=== PATIENT | female | born 1990 | race Caucasian/White ===

== ENCOUNTER 2016-03-13 22:34 | Emergency (ER) | payer MEDICAID, OTHER ==
[2016-03-13] MEDS ORDERED: ONDANSETRON INJ 4 MG/2 ML VIAL IV ONE (22:54)
[2016-03-13] MEDS ORDERED: DIPHENOXYLATE HCL/ATROPINE 2.5 MG TAB PO ONE (22:54)
--- NOTE | 2016-03-13 22:59 | ED.PDOC ---
History of Present Illness - General Chief Complaint: GI Problem Stated Complaint: diarrhea/abd pain/fever Time Seen by Provider: 03/13/16 22:40 Information Source: patient, RN notes reviewed, Vital Signs reviewed Exam Limitations: no limitations - History of Present Illness Initial Comments: Patient reports severe, copious diarrhea started about 1 pm today. She has had so much diarrhea she is having pain, burning and bleeding at her anus. + abd cramping and nausea prior to the episodes of diarrhea. + chills and subjective fever. No vomiting. Abdominal Pain Onset Location: LLQ Pain Radiation: no radiation Quality: moderate, cramping Timing/Duration: 7-24 hours Improving Factors: nothing Worsening Factors: nothing Associated Symptoms: diarrhea, fever/chills, fatigue, nausea/vomiting - No vomiting Review of Systems - Review of Systems Constitutional: States: chills, fever, malaise EENTM: States: no symptoms reported Respiratory: States: no symptoms reported Cardiology: States: no symptoms reported Gastrointestinal/Abdominal: States: see HPI, abdominal pain, diarrhea, nausea. Denies: constipation, vomiting Genitourinary: States: no symptoms reported Musculoskeletal: States: muscle pain Skin: States: no symptoms reported Neurological: States: no symptoms reported Endocrine: States: no symptoms reported Past Medical History (General) - Patient Medical History Hx Seizures: No Hx Stroke: No Hx Dementia: No Hx Asthma: No Hx of COPD: No Hx Cardiac Disorders: No Hx Congestive Heart Failure: No Hx Pacemaker: No Hx Hypertension: No Hx Thyroid Disease: No Hx Diabetes: No Hx Gastroesophageal Reflux: No Hx Renal Disease: No Hx Cancer: No Hx of HIV: No Hx Hepatitis C: No Hx MRSA: No - Vaccination History Hx Tetanus, Diphtheria Vaccination: No Hx Influenza Vaccination: No Hx Pneumococcal Vaccination: No - Social History Hx Tobacco Use: Yes Hx Chewing Tobacco Use: No Hx Alcohol Use: Yes - occasionally Hx Substance Use: Yes - clean for 5 years Hx Depression: No Hx Physical Abuse: No Hx Emotional Abuse: No Hx Suspected Abuse: No - Female History Hx Last Menstrual Period: 06/11/13 Patient : No Expected Date of Delivery:: 03/22/14 Family Medical History - Family History Mother Family History: No Known Physical Exam - Physical Exam General Appearance: Alert, No apparent distress, Well Developed, Well Groomed, Well Hydrated, Well Nourished Neck: non-tender, full range of motion, supple, normal inspection Respiratory: chest non-tender, lungs clear, normal breath sounds, no respiratory distress, no accessory muscle use Cardiovascular/Chest: regular rate, rhythm, no edema, no gallop, no JVD, no murmur Gastrointestinal/Abdominal: soft, no organomegaly, no pulsatile mass, abnormal bowel sounds - Hyperactive, tenderness - LLQ Extremity: normal range of motion, non-tender, normal inspection Neurologic: no motor/sensory deficits, alert, normal mood/affect, oriented x 3 Skin Exam: normal color, warm/dry Lymphatic: no adenopathy Progress - Progress Progress: 03/14/16 00:07 Patient has had no diarrhea since arriving at ER. Lomotil has not been given yet due to trying to get a urine sample for testing. Patient reports that the diarrhea seems to come after activity so she is now up walking around the ER to see if that will stimulate more diarrhea or if things are finally settling down. 03/14/16 00:23 Patient is still feeling ok. No diarrhea or urge to go. Tolerating PO intake without difficulty. Will hold off on the Lomotil and stool studies and d/c patient home. She is agreeable with plan. Departure - Departure Clinical Impression: Infectious diarrhea Time of Disposition: 00:26 Disposition: Discharge to Home or Self Care Departure Forms: ED Discharge - Pt. Copy, Patient Portal Self Enrollment Instructions: Diarrhea Diet: resume usual diet Referrals: Divine Becerra NP [Primary Care Provider] - 1-5 Days Prescriptions: Ondansetron [Zofran Odt] 4 mg PO Q6HRS PRN #15 tab PRN Reason: Nausea Home Medications: Ambulatory Orders Acetaminophen W/ Codeine [Tylenol W/ CODEINE #3] 1 - 2 ea PO Q8H PRN #16 Ibuprofen [Motrin Tab] 600 mg PO Q8H #20 tab 03/23/14 Acetaminophen W/ Codeine [Tylenol w/Codeine 300-30 mg] 1 tab PO Q6H PRN #20 tab 10/10/14 Ondansetron [Zofran Odt] 4 mg PO Q6HRS PRN #15 tab 03/14/16
[2016-03-13 23:03] VITALS: TEMP 101; O2SAT 97
[2016-03-13] MEDS ORDERED: SODIUM CHLORIDE 0.9% 1000ML 1,000 ML IVS ONE (23:09)
[2016-03-14 00:44] VITALS: BP 102/57
== END 2016-03-14 00:44 | disposition home or self-care (01) ==
LOC: ER 22:34
DX: A09 Infectious gastroenteritis and colitis, unspecified (principal); Z87.891 Personal history of nicotine dependence
CPT/HCPCS: 36415; 80053; 85025; J2405; J7030

== ENCOUNTER 2016-07-17 17:19 | Emergency (ER) | payer OTHER ==
[2016-07-17 17:28] VITALS: TEMP 98.8
--- NOTE | 2016-07-17 17:32 | ED.PDOC ---
History of Present Illness - General Chief Complaint: Back Pain or Injury Stated Complaint: low back pain Time Seen by Provider: 07/17/16 17:31 Source: patient, RN notes reviewed, Vital Signs reviewed Exam Limitations: no limitations - History of Present Illness Initial Comments: Andreina Vincent 26 y/o female stated that she started having on and off sharp low back pain which started 5 days ago aggravated after laying down and on standing more pain with bending over.Denies history of back injury,fever , weight loss,bowel or bladder dysfunctions.She stated the last 2 days pain went down to her right leg. Timing/Duration: other - 5 days ago Quality/Severity: sharpness Back Pain Location: lumbar spine Back Pain Radiation: lower legs Method of Injury/Prior Injury: other - no injury Improving Factors: immobilization Worsening Factors: movement Associated Symptoms: denies symptoms Allergies/Adverse Reactions: Allergies NO KNOWN ALLERGY Allergy (Verified 03/22/14 01:53) Home Medications: Ambulatory Orders Clindamycin HCl 150 mg PO TID #30 cap 07/17/16 Methocarbamol [Robaxin] 750 mg PO BID #20 tab 07/17/16 Naproxen [Naprosyn] 500 mg PO BID #20 tab 07/17/16 Nature-Throid DAILY 07/17/16 Review of Systems - Review of Systems Constitutional: States: no symptoms reported EENTM: States: no symptoms reported Respiratory: States: no symptoms reported Cardiology: States: no symptoms reported Gastrointestinal/Abdominal: States: no symptoms reported Genitourinary: States: no symptoms reported Musculoskeletal: States: see HPI Endocrine: States: no symptoms reported Hematologic/Lymphatic: States: no symptoms reported Past Medical History (General) - Patient Medical History Hx Seizures: No Hx Stroke: No Hx Dementia: No Hx Asthma: No Hx of COPD: No Hx Cardiac Disorders: No Hx Congestive Heart Failure: No Hx Pacemaker: No Hx Hypertension: No Hx Thyroid Disease: No Hx Diabetes: No Hx Gastroesophageal Reflux: No Hx Renal Disease: No Hx Cancer: No Hx of HIV: No Hx Hepatitis C: No Hx MRSA: No Surgical History: cholecystectomy, other - iud - Vaccination History Hx Tetanus, Diphtheria Vaccination: No Hx Influenza Vaccination: No Hx Pneumococcal Vaccination: No - Social History Hx Tobacco Use: No Hx Chewing Tobacco Use: No Hx Alcohol Use: Yes - occasionally Hx Substance Use: Yes - clean for 5 years Hx Depression: No Hx Physical Abuse: No Hx Emotional Abuse: No Hx Suspected Abuse: No - Activities of Daily Living Patient Lives Alone: No - family - Female History Patient is a Female of Child Bearing Age (10 -59 yrs old): Yes Hx Last Menstrual Period: 06/21/16 Patient : No Expected Date of Delivery:: 03/22/14 Family Medical History - Family History Mother Family History: No Known Hx Family Diabetes: Yes - mom Physical Exam - Physical Exam General Appearance: Alert, Comfortable, No apparent distress Eyes, Ears, Nose, Throat Exam: PERRL/EOMI, normal ENT inspection, TMs normal, pharynx normal, other - dental caries upper incisor right Neck Exam: non-tender, full range of motion, normal alignment, normal inspection Cardiovascular/Respiratory: regular rate, rhythm, no M/R/G, normal peripheral pulses, no JVD, normal breath sounds Peripheral Pulses: radial,right: 2+, radial,left: 2+, dorsalis pedis,right: 2+, dorsalis pedis,left: 2+ Gastrointestinal/Abdominal: normal bowel sounds, non tender, soft, no organomegaly Back Exam: normal inspection, no CVA tenderness, decreased range of motion - pain, muscle spasm, vertebral tenderness Neurologic: no motor/sensory deficits, alert, normal mood/affect, oriented x 3, other - negative straight leg raising test Skin Exam: normal color, warm/dry Progress - Results/Orders Results/Orders: Laboratory Results WBC 10.9 K/mm3 (4.8-10.8) H 07/17/16 18:00 RBC 4.64 M/mm3 (4.20-5.40) 07/17/16 18:00 Hgb 14.0 gm/dL (12.0-16.0) 07/17/16 18:00 Hct 40.3 % (36.0-47.0) 07/17/16 18:00 MCV 86.8 fl (81.0-99.0) 07/17/16 18:00 MCH 30.0 pg (27.0-31.0) 07/17/16 18:00 MCHC 34.6 g/dL (33.0-37.0) 07/17/16 18:00 RDW 13.2 % (11.5-14.5) 07/17/16 18:00 Plt Count 211 K/mm3 (130-400) 07/17/16 18:00 MPV 8.8 fl (7.40-10.4) 07/17/16 18:00 Absolute Neuts (auto) 7.60 K/uL (1.8-6.8) H 07/17/16 18:00 Absolute Lymphs (auto) 2.60 K/uL (1.0-3.4) 07/17/16 18:00 Absolute Monos (auto) 0.60 K/uL (0.2-0.8) 07/17/16 18:00 Absolute Eos (auto) 0.10 K/uL (0.0-0.4) 07/17/16 18:00 Absolute Basos (auto) 0.00 K/uL (0.0-0.1) 07/17/16 18:00 Neutrophils % 69.4 % (42.0-78.0) 07/17/16 18:00 Lymphocytes % 23.7 % (20.0-50.0) 07/17/16 18:00 Monocytes % 5.7 % (2.0-9.0) 07/17/16 18:00 Eosinophils % 0.8 % (1.0-5.0) L 07/17/16 18:00 Basophils % 0.4 % (0.0-2.0) 07/17/16 18:00 Urine Color Yellow (Yellow) 07/17/16 18:00 Urine Appearance Clear (Clear) 07/17/16 18:00 Urine pH 5.5 (4.5-7.8) 07/17/16 18:00 Ur Specific [place] <= 1.005 (1.005-1.030) 07/17/16 18:00 Urine Protein Negative mg/dL 07/17/16 18:00 Urine Glucose (UA) Negative mg/dL (Negative) 07/17/16 18:00 Urine Ketones Negative mg/dL (NEGATIVE) 07/17/16 18:00 Urine Blood Negative (Negative) 07/17/16 18:00 Urine Nitrite Negative 07/17/16 18:00 Urine Bilirubin Negative (NEGATIVE) 07/17/16 18:00 Urine Urobilinogen 0.2 mg/dL (0.2-1.0) 07/17/16 18:00 Ur Leukocyte Esterase Negative (Negative) 07/17/16 18:00 Urine RBC 0 /hpf 07/17/16 18:00 Urine WBC 0 /hpf 07/17/16 18:00 Ur Epithelial Cells 0-1 /hpf 07/17/16 18:00 Urine Bacteria 0 07/17/16 18:00 Vital Signs - 8 hr 07/17/16 17:25 Temperature 98.8 F Pulse Rate [ 93 H Right Brachial] Respiratory 16 Rate Blood Pressure 118/82 [Right Arm] O2 Sat by Pulse 96 Oximetry - EKG/XRAY/CT XRAY: L/S Spine-no acute abnormalities noted /radiologist Departure - Departure Clinical Impression: Tooth pulpitis Back pain Qualifiers: Back pain location: low back pain Back pain laterality: midline Sciatica presence: with sciatica presence unspecified Qualified Code(s): M54.5 - Low back pain Time of Disposition: 18:46 Disposition: Discharge to Home or Self Care Condition: Good Departure Forms: ED Discharge - Pt. Copy, Patient Portal Self Enrollment Instructions: DI for Low Back Pain Referrals: Katherine Camara NP [Primary Care Provider] - 1-2 Weeks Prescriptions: Clindamycin HCl 150 mg PO TID #30 cap Methocarbamol [Robaxin] 750 mg PO BID #20 tab Naproxen [Naprosyn] 500 mg PO BID #20 tab Home Medications: Ambulatory Orders Clindamycin HCl 150 mg PO TID #30 cap 07/17/16 Methocarbamol [Robaxin] 750 mg PO BID #20 tab 07/17/16 Naproxen [Naprosyn] 500 mg PO BID #20 tab 07/17/16 Nature-Throid DAILY 07/17/16 Additional Instructions: Follow up with primary md call for appointment 07/19/2016;Keep appointment with dentist next week
[2016-07-17] MEDS ORDERED: KETOROLAC TROMETHAMINE INJ 60 MG/2 ML VIAL IM ONE (17:45)
[2016-07-17] MEDS ORDERED: ORPHENADRINE CITRATE 30 MG/ML AMP IM ONE (17:45)
[2016-07-17] MEDS ORDERED: CLINDAMYCIN HCL CAP 150 MG CAP PO ONE (18:02)
--- NOTE | 2016-07-17 18:40 | RAD ---
EXAM DESCRIPTION: Lumbosacral w/Oblique,Flex,Ext CLINICAL HISTORY: pain COMPARISON: None. FINDINGS: AP, oblique and lateral view of the lumbar spine, and coned view of the lumbosacral junction were submitted. Flexion and extension views are also available. There is no inducible subluxation upon flexion and extension views. There are five true lumbar vertebral bodies. The pedicles are within normal limits. There is no acute fracture or spondylolisthesis. Surgical clips in the right upper quadrant compatible with prior cholecystectomy. IMPRESSION: No acute abnormalities. Electronically signed by: Gorge Rollins MD 07/17/2016 6:40 PM CDT
[2016-07-17 18:51] VITALS: BP 107/75; O2SAT 95
== END 2016-07-17 19:01 | disposition home or self-care (01) ==
LOC: ER 17:19
DX: M54.5 Low back pain (principal); K04.01 Reversible pulpitis
CPT/HCPCS: 36415; 72114; 81001; 85025; J1885; J2360

== ENCOUNTER → 2016-09-21 | Outpatient (CLI) | payer OTHER ==
--- NOTE | 2016-09-25 14:55 | RAD ---
EXAM DESCRIPTION: Ankle,Right 3 Views CLINICAL HISTORY: 26 years, Female, INJURY OF ANKLE COMPARISON: None. TECHNIQUE: AP/lateral/oblique of the right ankle FINDINGS: There is no bone, joint, or soft tissue abnormality. IMPRESSION: 1. Normal Electronically signed by: Santy Ratliff MD 09/25/2016 2:53 PM CDT
== END | disposition home or self-care (01) ==
LOC: RAD 16:36
PROVIDERS: ATTEND Nurse Practitioner Family
DX: S99.911A Unspecified injury of right ankle, initial encounter (principal)

== ENCOUNTER → 2016-10-12 | Outpatient (CLI) | payer OTHER | END | disposition home or self-care (01) | LOC: YCFC.O 09:08 | PROVIDERS: ATTEND Nurse Practitioner Family | DX: E06.3 Autoimmune thyroiditis (principal) ==

== ENCOUNTER 2017-02-28 14:40 | Emergency (ER) | payer OTHER ==
--- NOTE | 2017-02-28 14:54 | ED.PDOC ---
History of Present Illness - General Chief Complaint: General Stated Complaint: unabel to quench thirst,ASHTON d/t caffeine withdrawal Time Seen by Provider: 02/28/17 14:53 Source: patient Exam Limitations: no limitations - History of Present Illness Initial Comments: Andreina Vincent 26 y/o female stated she has cravings for sodium and mouth feels dry with loose stools for the last few months since gall bladder was taken out.No feve ,no nausea vomiting no abdominal pain,no fever Timing/Duration: other - several weeks Severity: moderate Improving Factors: nothing Worsening Factors: nothing Associated Symptoms: other - see hpi Allergies/Adverse Reactions: Allergies NO KNOWN ALLERGY Allergy (Verified 03/22/14 01:53) Home Medications: Ambulatory Orders Levothyroxine Sodium 02/28/17 Review of Systems - Review of Systems Constitutional: States: no symptoms reported EENTM: States: no symptoms reported Respiratory: States: no symptoms reported Cardiology: States: no symptoms reported Gastrointestinal/Abdominal: States: no symptoms reported Genitourinary: States: no symptoms reported Musculoskeletal: States: no symptoms reported Skin: States: no symptoms reported All other Systems: Reviewed and Negative, No Change from Baseline Past Medical History (General) - Patient Medical History Hx Seizures: No Hx Stroke: No Hx Dementia: No Hx Asthma: No Hx of COPD: No Hx Cardiac Disorders: No Hx Congestive Heart Failure: No Hx Pacemaker: No Hx Hypertension: No Hx Thyroid Disease: No Hx Diabetes: No Hx Gastroesophageal Reflux: No Hx Renal Disease: No Hx Cancer: No Hx of HIV: No Hx Hepatitis C: No Hx MRSA: No Surgical History: cholecystectomy, other - orif left ankle - Vaccination History Hx Tetanus, Diphtheria Vaccination: No Hx Influenza Vaccination: No Hx Pneumococcal Vaccination: No - Social History Hx Tobacco Use: No Hx Chewing Tobacco Use: No Hx Alcohol Use: Yes - occasionally Hx Substance Use: Yes - clean for 5 years Hx Depression: No Hx Physical Abuse: No Hx Emotional Abuse: No Hx Suspected Abuse: No - Female History Hx Last Menstrual Period: 06/21/16 - spotting;on iud/bcp Patient : No Expected Date of Delivery:: 03/22/14 Family Medical History - Family History Mother Family History: No Known Hx Family Diabetes: Yes - mom Physical Exam - Physical Exam General Appearance: Alert, Comfortable, No apparent distress Eye Exam: bilateral normal Ears, Nose, Throat: hearing grossly normal, normal ENT inspection, normal pharynx Neck: non-tender, full range of motion, supple Respiratory: lungs clear, normal breath sounds Cardiovascular/Chest: regular rate, rhythm, no edema, no murmur Peripheral Pulses: radial,right: 2+, radial,left: 2+ Gastrointestinal/Abdominal: normal bowel sounds, non tender, soft Back Exam: no CVA tenderness, no vertebral tenderness Neurologic: no motor/sensory deficits, alert, oriented x 3 Skin Exam: normal color, warm/dry Progress - Progress Progress: 02/28/17 16:55 Last Vital Signs Temp 98 F 02/28/17 14:51 Pulse 70 02/28/17 14:51 Resp 20 02/28/17 14:51 BP 118/73 02/28/17 14:51 Pulse Ox 98 02/28/17 14:51 Laboratory Tests 02/28/17 02/28/17 02/28/17 14:55 14:55 14:55 WBC 7.1 RBC 4.49 Hgb 13.8 Hct 39.2 MCV 84.7 MCH 30.8 MCHC 35.2 RDW 13.0 Plt Count 213 MPV 8.3 Absolute Neuts (auto) 4.20 Absolute Lymphs (auto) 2.50 Absolute Monos (auto) 0.40 Absolute Eos (auto) 0.10 Absolute Basos (auto) 0.00 Neutrophils % 59.1 Lymphocytes % 34.6 Monocytes % 5.2 Eosinophils % 0.7 L Basophils % 0.4 Sodium 141 Potassium 3.6 Chloride 107 Carbon Dioxide 27 Anion Gap 10.6 L BUN 12 Creatinine 0.66 BUN/Creatinine Ratio 18.2 Random Glucose 85 Serum Osmolality 280.3 Calcium 8.4 Total Bilirubin 0.5 AST 19 ALT 17 Alkaline Phosphatase 61 Serum Total Protein 7.0 Albumin 3.7 Globulin 3.3 Albumin/Globulin Ratio 1.1 Serum HCG, Qual Urine Color Urine Appearance Urine pH Ur Specific [place] Urine Protein Urine Glucose (UA) Urine Ketones Urine Blood Urine Nitrite Urine Bilirubin Urine Urobilinogen Ur Leukocyte Esterase Urine RBC Urine WBC Ur Epithelial Cells Urine Bacteria Urine Opiates Screen Negative Urine Barbiturates Negative Ur Phencyclidine Scrn Negative U Amphetamin/Meth Scrn Negative U Benzodiazepines Scrn Negative U Cocaine Metab Screen Negative U Cannabinoids Screen Negative 02/28/17 02/28/17 15:20 15:45 WBC RBC Hgb Hct MCV MCH MCHC RDW Plt Count MPV Absolute Neuts (auto) Absolute Lymphs (auto) Absolute Monos (auto) Absolute Eos (auto) Absolute Basos (auto) Neutrophils % Lymphocytes % Monocytes % Eosinophils % Basophils % Sodium Potassium Chloride Carbon Dioxide Anion Gap BUN Creatinine BUN/Creatinine Ratio Random Glucose Serum Osmolality Calcium Total Bilirubin AST ALT Alkaline Phosphatase Serum Total Protein Albumin Globulin Albumin/Globulin Ratio Serum HCG, Qual Negative Urine Color Yellow Urine Appearance Clear Urine pH 5.5 Ur Specific [place] 1.015 Urine Protein Negative Urine Glucose (UA) Negative Urine Ketones Negative Urine Blood Negative Urine Nitrite Negative Urine Bilirubin Negative Urine Urobilinogen 0.2 Ur Leukocyte Esterase Negative Urine RBC 1-3 Urine WBC 5-10 H Ur Epithelial Cells 0-1 Urine Bacteria 2+ H Urine Opiates Screen Urine Barbiturates Ur Phencyclidine Scrn U Amphetamin/Meth Scrn U Benzodiazepines Scrn U Cocaine Metab Screen U Cannabinoids Screen - EKG/XRAY/CT XRAY: chest - no acute abnormalities noted Departure - Departure Clinical Impression: Malaise and fatigue Urinary tract infection Qualifiers: Urinary tract infection type: site unspecified Hematuria presence: without hematuria Qualified Code(s): N39.0 - Urinary tract infection, site not specified Time of Disposition: 16:57 Disposition: Discharge to Home or Self Care Departure Forms: ED Discharge - Pt. Copy, Patient Portal Self Enrollment Referrals: Katherine Camara NP [Primary Care Provider] - 1-2 Weeks Home Medications: Ambulatory Orders Levothyroxine Sodium 02/28/17 Additional Instructions: Follow up with primary Md for referral to gi specialist
[2017-02-28 14:55] VITALS: TEMP 98
[2017-02-28] MEDS ORDERED: SODIUM CHLORIDE 0.9% 1000ML 1,000 ML IVS ONE (14:55)
[2017-02-28 17:17] VITALS: BP 111/73; O2SAT 96
--- NOTE | 2017-02-28 21:14 | RAD ---
EXAM DESCRIPTION: Chest,1 View CLINICAL HISTORY: Shortness of breath COMPARISON: None available Findings: Single upright portable frontal chest. Cardiac silhouette and pulmonary vascularity are within normal limits. Lungs are clear without focal consolidations. No pleural effusion. No pneumothorax. No acute osseous abnormality. IMPRESSION: No radiographic evidence for acute cardiopulmonary process. Electronically signed by: Brandyn Mejía MD 02/28/2017 3:40 PM [employer]GER
== END 2017-02-28 17:17 | disposition home or self-care (01) ==
LOC: ER 14:40
DX: N39.0 Urinary tract infection, site not specified (principal); R53.81 Other malaise
CPT/HCPCS: 71010; 80053; 80307; 81001; 84703; 85025; J7030

== ENCOUNTER → 2017-07-14 | Outpatient (CLI) | payer OTHER | LOC: LAB.O 08:05 | PROVIDERS: ATTEND Nurse Practitioner Family | DX: R63.1 Polydipsia (principal) ==

== ENCOUNTER 2020-02-25 19:27 | Emergency (ER) | payer OTHER ==
[2020-02-25 19:48] VITALS: TEMP 98.8
[2020-02-25] MEDS ORDERED: SODIUM CHLORIDE 0.9% 1000ML 1,000 ML IVS ONE (20:09)
[2020-02-25 20:32] VITALS: O2SAT 100
--- NOTE | 2020-02-25 21:23 | ED.PDOC ---
History of Present Illness - General Chief Complaint: General Stated Complaint: Dehydrated Time Seen by Provider: 02/25/20 20:08 Source: patient, RN notes reviewed, Vital Signs reviewed Exam Limitations: no limitations - History of Present Illness Initial Comments: Patient is a 29-year-old white female who presents with complaints of generalized malaise, fatigue and feeling dehydrated. Patient has had similar episodes of this with her last 3 or 4 pregnancies. Patient is a G6, P4, AB 1 with an EGA of approximately 6 weeks. Patient symptoms are constant, worsening, nothing makes them better or worse. Timing/Duration: 1 week, getting worse Severity: moderate Improving Factors: nothing Worsening Factors: nothing Associated Symptoms: loss of appetite, malaise, weakness Allergies/Adverse Reactions: Allergies NO KNOWN ALLERGY Allergy (Verified 06/01/19 18:33) Home Medications: Ambulatory Orders Cephalexin Monohydrate [Keflex] 500 mg PO Q6H #28 cap 02/25/20 Promethazine Tab [Phenergan Tablet] 25 mg PO Q6H #28 tab 02/25/20 Review of Systems - Review of Systems Constitutional: States: see HPI, malaise, weakness. Denies: chills, fever EENTM: States: no symptoms reported. Denies: eye pain, blurred vision, double vision Respiratory: States: no symptoms reported. Denies: cough, short of breath, wheezing Cardiology: States: no symptoms reported. Denies: chest pain, palpitations, syncope Gastrointestinal/Abdominal: States: no symptoms reported. Denies: abdominal pain, diarrhea, nausea, vomiting Genitourinary: States: no symptoms reported. Denies: dysuria, frequency Musculoskeletal: States: no symptoms reported. Denies: back pain, joint pain, joint swelling, neck pain Skin: States: no symptoms reported. Denies: change in color, dryness, rash Neurological: States: see HPI, weakness. Denies: headache, tingling, tremors Endocrine: States: no symptoms reported. Denies: increased hunger, increased thirst, increased urine Hematologic/Lymphatic: States: no symptoms reported. Denies: blood clots, easy bleeding All other Systems: Reviewed and Negative Past Medical History (General) - Patient Medical History Hx Seizures: No Hx Stroke: No Hx Dementia: No Hx Asthma: No Hx of COPD: No Hx Cardiac Disorders: No Hx Congestive Heart Failure: No Hx Pacemaker: No Hx Hypertension: No Hx Thyroid Disease: No Hx Diabetes: No Hx Gastroesophageal Reflux: Yes Hx Renal Disease: No Hx Cancer: No Hx of HIV: No Hx Hepatitis C: No Hx MRSA: No Surgical History: cholecystectomy - Vaccination History Hx Tetanus, Diphtheria Vaccination: No Hx Influenza Vaccination: No Hx Pneumococcal Vaccination: No - Social History Hx Tobacco Use: No Hx Chewing Tobacco Use: No Hx Alcohol Use: No Hx Substance Use: No Hx Substance Use Treatment: No Hx Depression: No Feels Threatened In Home Enviroment: No Feels Threatened In a Relationship: No Hx Physical Abuse: No Hx Emotional Abuse: No Hx Suspected Abuse: No - Female History Patient is a Female of Child Bearing Age (10 -59 yrs old): Yes Hx Last Menstrual Period: 06/21/16 - spotting;on iud/bcp Patient : Yes Expected Date of Delivery:: 03/22/14 - Triage Comment ED Triage Comment: The pateint is alert and oriented times 4 and complained of constant thirst. She advised that she had body aches that went away when she was able to drink and eat salt. She did not appear in distress and denied nausea at the time of assessment but stated she had nausea on and off with the thirst compliants. Family Medical History - Family History Mother Family History: No Known Hx Family Diabetes: Yes - mom Physical Exam - Physical Exam General Appearance: Alert, Comfortable, No apparent distress, Well Developed, Well Groomed, Well Nourished Eye Exam: bilateral normal Ears, Nose, Throat: hearing grossly normal, normal ENT inspection, normal pharynx - except dry MM Neck: non-tender, full range of motion, supple Respiratory: chest non-tender, lungs clear, normal breath sounds, no respiratory distress, no accessory muscle use Cardiovascular/Chest: normal peripheral pulses, regular rate, rhythm, no edema, no gallop, no JVD, no murmur Peripheral Pulses: radial,right: 2+, radial,left: 2+ Gastrointestinal/Abdominal: normal bowel sounds, non tender, soft Back Exam: normal inspection, no CVA tenderness, no vertebral tenderness Extremity: normal range of motion, non-tender, normal inspection 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 02/25/20 21:27 Patient is markedly improved after IV fluids. Plan on discharge home with prescription for antibiotics to treat a potential UTI. We will also send her home with a prescription for Phenergan for nausea. I discussed this plan of care with the patient she voices understanding and agreement. 02/25/20 22:16 Patient's urine test is still pending but I will discharge her home. I will treat her for potential UTI. I discussed this plan of care with the patient and she voices understanding and agreement. Dao Ye M.D. #[id number] - Results/Orders Results/Orders: 02/25/20 20:26 URINE CULTURE W/COLONY COUNT Stat Laboratory Results - last 24 hr 02/25/20 02/25/20 02/25/20 20:13 20:13 20:13 WBC 8.5 RBC 4.06 L Hgb 12.8 Hct 36.1 MCV 88.8 MCH 31.4 H MCHC 35.4 RDW 12.7 Plt Count 221 MPV 8.0 Absolute Neuts (auto) 5.90 Absolute Lymphs (auto) 2.00 Absolute Monos (auto) 0.60 Absolute Eos (auto) 0.00 Absolute Basos (auto) 0.00 Neutrophils % 69.6 Lymphocytes % 23.3 Monocytes % 6.5 Eosinophils % 0.1 L Basophils % 0.5 Sodium 135 Potassium 3.7 Chloride 103 Carbon Dioxide 23 Anion Gap 12.7 BUN 10 Creatinine 0.52 L BUN/Creatinine Ratio 19.2 Random Glucose 85 Serum Osmolality 268.4 L Calcium 8.4 Total Bilirubin 0.6 AST 55 H ALT 77 H Alkaline Phosphatase 40 L Serum Total Protein 6.7 Albumin 3.7 Globulin 3.0 Albumin/Globulin Ratio 1.2 Lipase 34 Urine Color Urine Appearance Urine pH Ur Specific [place] Urine Protein Urine Glucose (UA) Urine Ketones Urine Blood Urine Nitrite Urine Bilirubin Urine Urobilinogen Ur Leukocyte Esterase Urine RBC Urine WBC Ur Epithelial Cells Urine Bacteria 02/25/20 20:26 WBC RBC Hgb Hct MCV MCH MCHC RDW Plt Count MPV Absolute Neuts (auto) Absolute Lymphs (auto) Absolute Monos (auto) Absolute Eos (auto) Absolute Basos (auto) Neutrophils % Lymphocytes % Monocytes % Eosinophils % Basophils % Sodium Potassium Chloride Carbon Dioxide Anion Gap BUN Creatinine BUN/Creatinine Ratio Random Glucose Serum Osmolality Calcium Total Bilirubin AST ALT Alkaline Phosphatase Serum Total Protein Albumin Globulin Albumin/Globulin Ratio Lipase Urine Color Yellow Urine Appearance Clear Urine pH 6.5 Ur Specific [place] 1.025 Urine Protein Negative Urine Glucose (UA) Negative Urine Ketones Trace Urine Blood Negative Urine Nitrite Negative Urine Bilirubin Negative Urine Urobilinogen 0.2 Ur Leukocyte Esterase Moderate H Urine RBC 0-1 Urine WBC 1-3 Ur Epithelial Cells 20-30 Urine Bacteria 1+ Vital Signs 02/25/20 02/25/20 02/25/20 19:39 20:28 21:00 Temperature 98.8 F Pulse Rate [ 66 62 65 Pulse Ox] Respiratory 14 14 14 Rate Blood Pressure 118/77 111/70 117/68 [Left Arm] O2 Sat by Pulse 99 100 100 Oximetry Vital Signs 02/25/20 02/25/20 02/25/20 19:39 20:28 21:00 Temperature 98.8 F Pulse Rate [ 66 62 65 Pulse Ox] Respiratory 14 14 14 Rate Blood Pressure 118/77 111/70 117/68 [Left Arm] O2 Sat by Pulse 99 100 100 Oximetry 02/25/20 22:00 Temperature Pulse Rate [ 60 Pulse Ox] Respiratory 14 Rate Blood Pressure 123/85 [Left Arm] O2 Sat by Pulse 100 Oximetry Departure - Departure Clinical Impression: Dehydration, Malaise and fatigue Qualifiers: Weeks of gestation: less than 8 weeks Qualified Code(s): Z3A.01 - Less than 8 weeks gestation of UTI (urinary tract infection) Qualifiers: Urinary tract infection type: acute cystitis Hematuria presence: without hematuria Qualified Code(s): N30.00 - Acute cystitis without hematuria Time of Disposition: 22:17 Disposition: Discharge to Home or Self Care Condition: Good Departure Forms: ED Discharge - Pt. Copy, Patient Portal Self Enrollment Instructions: Urinary Tract Infection, Adult (DC), Morning Sickness (DC), Dehydration, Adult (DC) Diet: resume usual diet Activity: increase activity as tolerated Referrals: Katherine Camara NP [Primary Care Provider] - 1-5 Days Prescriptions: Cephalexin Monohydrate [Keflex] 500 mg PO Q6H #28 cap Promethazine Tab [Phenergan Tablet] 25 mg PO Q6H #28 tab Home Medications: Ambulatory Orders Cephalexin Monohydrate [Keflex] 500 mg PO Q6H #28 cap 02/25/20 Promethazine Tab [Phenergan Tablet] 25 mg PO Q6H #28 tab 02/25/20
[2020-02-25 22:25] VITALS: BP 122/80
== END 2020-02-25 22:25 | disposition home or self-care (01) ==
LOC: ER 19:27
DX: O23.11 Infections of bladder in pregnancy, first trimester (principal); O99.283 Endocrine, nutritional and metabolic diseases complicating pregnancy, third trimester; E86.0 Dehydration; O26.891 Other specified pregnancy related conditions, first trimester; R53.83 Other fatigue; R53.81 Other malaise; K21.9 Gastro-esophageal reflux disease without esophagitis; O99.611 Diseases of the digestive system complicating pregnancy, first trimester; Z3A.01 Less than 8 weeks gestation of pregnancy; Z90.49 Acquired absence of other specified parts of digestive tract
CPT/HCPCS: 36415; 80053; 81001; 81025; 83690; 85025; 87086; J7030